=== PATIENT | male | born 1995 | race Caucasian/White ===

== ENCOUNTER 2018-05-06 16:20 | Emergency (ER) | payer SELFPAY ==
[2018-05-06] MEDS ORDERED: NOREPINEPHRIN 8MG/250ML PREMIX 250 ML IV ONE (16:40)
[2018-05-06] MEDS ORDERED: TRANEXAMIC ACID 1,000 MG in IV NORMAL SALINE 50ML 50 ML INJ ONE (17:00)
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
[2018-05-06 17:14] LABS: CREATININE ISTAT 1.5 mg/dL (0.5-1.4); HEMOGLOBIN ISTAT 11.2 g/dL (14-18); ION CA ISTAT 1.11 mmol/L (1.13-1.32); POTASSIUM ISTAT 3.7 mmol/L (3.5-5.0)
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
[2018-05-06 17:41] LABS: BASE EXCESS ABG -16 mmol/L (-3-3); FIO2 ABG 100; HCO3 ABG 15 mmol/L (21-28); PCO2 ABG 62 mmHg (35-46); PO2 ABG 200 mmHg (65-108); SAT O2 ABG 98 % (92-99)
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
== END 2018-05-06 17:24 | disposition short-term general hospital (02) ==
LOC: EDBD 16:20 → ER 16:20
DX: R57.1 Hypovolemic shock (principal)
CPT/HCPCS: 31500; 36415; 36430; 36556; 71045; 72170; 80047; 82805; 84484; 85014; 85018; 86850; 86900; 86901; 86920; 86927; 99291; 99292; G0390; P9016; P9017